=== PATIENT | male | born 1950 | race Caucasian/White ===

== ENCOUNTER 2016-10-29 15:06 | Inpatient (IN) | payer OTHER ==
[~2016-10-29] VITALS: Ht 165.1 cm; Wt 98.0 kg
[2016-11-08] VITALS (12 sets, daily range): BP systolic 103–155; BP diastolic 54–88; PULSE 62–79; RESP 16–18; TEMP 97.3–98.5; O2SAT 91–100
[2016-11-08] MEDS ORDERED: FUROSEMIDE 100 MG/10 ML VIAL IV PUSH ONE (05:00)
[2016-11-08] MEDS ORDERED: VECURONIUM BROMIDE 10 MG VIAL IV ONE (05:00)
[2016-11-08] MEDS ORDERED: ARTIFICIAL TEARS OPTH OINT 3.5 APPLIC/3.5 GM TUBO ONE (05:00)
[2016-11-08] MEDS ORDERED: NITROGLYCERIN-DEXTROSE INJ 250 ML IV ONE (05:00)
[2016-11-08] MEDS ORDERED: PROPOFOL 1000 MG/100 ML INJ 100 ML IV ONE (05:00)
[2016-11-08] MEDS ORDERED: HEPARIN SODIUM - SQ 10,000 UNITS/ML VIAL SQ ONE (05:00)
[2016-11-08] MEDS ORDERED: PROTAMINE SULFATE 250 MG/25 ML VIAL IV ONE (05:00)
[2016-11-08] MEDS ORDERED: MAGNESIUM SULFATE 1000 MG/2 ML VIAL (PED) IV ONE (05:00)
[2016-11-08] MEDS ORDERED: CALCIUM CHLORIDE 10% SOLN 1 GRAM/10 ML SYR IV ONE (05:00)
[2016-11-08] MEDS ORDERED: PHENYLEPHRINE HCL 10 MG/ML VIAL IV ONE (05:00)
[2016-11-08] MEDS ORDERED: GLYCOPYRROLATE 0.2 MG/ML VIAL IV ONE (05:00)
[2016-11-08] MEDS ORDERED: ASPI81CH CHEW (09:43)
[2016-11-08] MEDS ORDERED: FLUO20CA12 PO (09:43)
[2016-11-08] MEDS ORDERED: LISI20TA PO (09:45)
[2016-11-08] MEDS ORDERED: ISOS20TA PO (09:46)
[2016-11-08] MEDS ORDERED: ISOS10TA3 PO (09:46)
[2016-11-08] MEDS ORDERED: METO25TA3 PO (09:48)
[2016-11-08] MEDS ORDERED: NITR0.4S SL (09:48)
[2016-11-08] MEDS ORDERED: OMEP20TA PO (09:49)
[2016-11-08] MEDS ORDERED: SIMV40TA PO (09:49)
[2016-11-08] MEDS ORDERED: POTASSIUM CHLORIDE 20 MEQ/10 ML VIAL ONE (10:01)
[2016-11-08] MEDS ORDERED: MANNITOL INJ 50 ML ONE (10:01)
[2016-11-08] MEDS ORDERED: CARDIOPLEGIC IRR 1,000 ML ONE (10:01)
[2016-11-08] MEDS ORDERED: HEPARIN SODIUM - IV 10,000 UNITS/10 ML VIAL ONE (10:02)
[2016-11-08] MEDS ORDERED: ALBUMIN HUMAN 25% 12.5 GM/50 ML BAGP IV ONE (10:02)
[2016-11-08] MEDS ORDERED: HEPARIN SODIUM - SQ 10,000 UNITS/ML VIAL ONE ×2 (10:02→10:06)
[2016-11-08] MEDS ORDERED: VANCOMYCIN HCL 1000 MG VIAL ONE (10:05)
[2016-11-08] MEDS ORDERED: methylPREDNISolone SOD SUCC 125 MG/2 ML VIAL ONE (10:06)
[2016-11-08] MEDS ORDERED: ceFAZolin 2 GM PREMIX 50 ML ONE (10:06)
[2016-11-08] MEDS ORDERED: SODIUM CHLORID 0.9% 500 ML IV PRN (10:15)
[2016-11-08] MEDS ORDERED: POVIDONE IODINE 5% (ANTISEPSIS KIT) 4 APPLICATIONS EACH NARE PRN (10:15)
[2016-11-08] MEDS ORDERED: LACTATED RINGER'S 1000 ML IV PRN (10:15)
[2016-11-08] MEDS ORDERED: METOPROLOL TARTRATE 25 MG TAB PO PRN (10:15)
[2016-11-08] MEDS ORDERED: CHLORHEXIDINE GLUCONATE 2 % 1 PACK (2 CLOTHS) TOPICAL PRN (10:15)
[2016-11-08] MEDS ORDERED: INSULIN HUMAN REGULAR 1,000 UNITS/10 ML VIAL SQ PRN (10:15)
[2016-11-08] MEDS ORDERED: SODIUM CHLORIDE 0.9% FLUSH 10 ML FLUSH IV FLUSH PRN ×3 (10:30→16:00)
[2016-11-08] MEDS ORDERED: CEFAZOLIN 500 MG in NS IRR BTL 500 ML IRRIGATION SCH (10:30)
[2016-11-08] MEDS ORDERED: METOPROLOL TARTRATE 25 MG TAB PO ONE (10:30)
[2016-11-08] MEDS ORDERED: CHLORHEXIDINE GLUCONATE 4% SOLN 120 ML BTL TOPICAL SCH (10:30)
[2016-11-08] MEDS ORDERED: PAPAVERINE 60 MG-NITROGLYCERIN 100 MCG-DILTIAZEM 100 MG in NS 100 ML IRRIGATION SCH ×4 (10:30)
[2016-11-08] MEDS ORDERED: ceFAZolin 2 GM PREMIX 50 ML IV SCH (10:30)
[2016-11-08] MEDS ORDERED: INSULIN REGULAR 100 UNITS in NS 100 ML IV SCH (10:30)
[2016-11-08 11:34] LABS: MRSA PCR NEGATIVE (NEGATIVE); STAPH AUREUS PCR NEGATIVE (NEGATIVE)
[2016-11-08] MEDS ORDERED: ceFAZolin INJ 1,000 MG VIAL IV ONE (12:35)
[2016-11-08] MEDS ORDERED: AMINOCAPROIC ACID INJ 250 MG/ML 20 ML VIAL IV ONE (12:53)
[2016-11-08] MEDS ORDERED: LACTATED RINGER'S 1000 ML INJ 2,000 ML IV ONE (12:54)
--- NOTE | 2016-11-08 12:54 | HHI.FF ---
Face to Face Verification Diagnosis: (1) Coronary artery disease (2) S/P CABG (coronary artery bypass graft) (3) Hyperlipemia (4) Hypertension Home Health Nursing Order: Signs/symptoms of disease process Wound care and dressing changes Nursing assessment with vital signs Instructions: Heart and Vascular Surgery patients *Special attention to sternal dressing Mandatory frequency Assess and evaluation, 4 days in a row The next week 3X week 2 times a week for 4 weeks 1 time a week for 5 weeks Schedule Heart and Vascular patients for full 60 day certification period Initial visit Review Open Heart Surgery Discharge Instructions (Sternal precautions, Activity, Elastic hose, Incision care, Driving, Incentive spirometry, Smoking, [place], Work and other) Need Betadine to paint incision Medication reconciliation Importance of follow up care/ check on appointments Make calendar record temperature daily When to call [facility] nurse, review instructions, phone list Incentive Spirometry, demonstration Visit 1- Begin discharge instruction for patient family and/ or caregiver using teach back method- Signs and symptoms of infection Disease characteristics Medicines and side effects Foods and nutrition/ appetite Infection control/ hand washing/ hygiene Visit 2- Continue teaching Discharge instructions- include additional information on smoking cessation , sternal dressing (sternal vac) Visit 3- Continue teaching- Cough and deep breathing, incision monitoring. Choose my plate Visit 4- Continue teaching- Discuss limitations Discuss how they are feeling Discuss progress toward goals Remaining visits- continue teaching and monitoring PREVENA Single Use Negative Wound Therapy System Caregiver Instruction Sheet 1. A Prevena dressing system was applied to the chest incision during surgery , to promote wound healing. It works via a suction device (negative pressure wound therapy) to remove low to moderate levels of exudate (drainage) and infectious materials. We recommend that the device stay in place for up to seven days, from day of surgery. 2. Day of Surgery___7/ Day of Removal ____/ 3. The dressing should only be removed by a health rn care transition. Please arrange removal of device to coincide with Home Health visit and or with Nursing staff at Rehab 4. If skin reddening or irritation of skin occurs, or excessive drainage, please notify the Cardiovascular Surgeons office at [phone]. 5. Light showering is permissible; however the pump should be disconnected and placed in safe location, where it will not get wet. The dressing should not be exposed to direct spray or submerged in water. No bath tub / shower only. Ensure the end of the tubing attached to the dressing is facing down so that water does not enter the top of the tube. 6. To remove Prevena dressing: press purple button to turn off device / remove the suction. Then disconnect the tubing from the pump. The fixation strips should be stretched away from the skin and the dressing lifted at one corner and peeled back until it has been fully removed. 7. After removal, it is ok to shower daily using liquid dial soap and clean wash cloth, rinse and pat dry, and leave incision open to air dry. For any concerns regarding Prevena dressing, and or wounds, please contact Yany Hernandez, patient navigator at [phone] or notify the Cardiovascular Surgeons office at [phone]. Incentive spirometry Q1 hr x 10, while awake, also use acapella device hourly whole awake Sternal Breast Bone Precautions: NO pushing or pulling, ( pt must use sternal pillow to support chest with all activities and with coughing ( takes up to 3 months breast bone to heal ) All females to wear sternal bra , launder as needed Daily incision care: ok to shower daily, no tub bath. Wash all incisions with liquid dial soap, clean wash cloth to each site, rinse and pat dry. Observe for any signs of infection, such as drainage which is dark yellow, magana, green or foul smelling. Immediately report to the surgeon any drainage from the chest incision, or legs, and for any abnormal drainage from the chest tube sites. Notify surgeon if any temp >101.5 degrees F. When specialty dressing removed/ or if you do not have one, continue to shower daily as above, then rinse and pat incision dry and paint with betadine daily x 5 days. Allow steri strips to fall off if you have any. Avoid lotions, creams, salves, oils, etc. for the first month Please see attached forms for additional instructions regarding post Open Heart specialty wound vacuum dressings. ABE or Prevena , Dressing to be removed by Nursing staff on ___11/15/16____ For Dr. Harris patients , please obtain CBC, BMP, PA & Lat CXR in 2 weeks, results to Dr. Harris ( prescription will be given) ( ) (Tele: [phone]) , Valve replacement pts will need 2decho in 2 weeks with results to Dr. Harris . Please obtain 2 d echo at your installment loan collector office if possible F/U appointment: as per DC instructions: PCP in 2 weeks, CV surgeon 2 weeks, Ore Mixer 3-4 weeks For any questions regarding incisions/ dressing / meds / post op care or above Symptoms, Friday 8am-5pm Heart & Vascular Surgery Office ( Dr. Timmons & Dr. Harris), After Hours / Nights (5pm -8am) Weekends and Holidays Please call [facility] Cardiac Inter[facility] ([facility]) Charge Nurse I have seen patient Dimas Petty on 11/08/16. My clinical findings support the need for the requested home health care services because: Deconditioned w/ increased weakness I certify that my clinical findings support that this patient is homebound because: Post-op weakness Ena Simmons Nov 08, 2016 12:54
[2016-11-08] MEDS ORDERED: SODIUM CHLORIDE 0.9% INJ 100 ML IV ONE (12:55)
[2016-11-08] MEDS ORDERED: SODIUM CHLOR 0.9% 250 ML INJ 500 ML IV ONE (12:55)
[2016-11-08] MEDS ORDERED: NORMOSOL R INJ 1,000 ML IV ONE (12:57)
[2016-11-08] MEDS ORDERED: DEXMEDETOMIDINE HCL 200 MCG/2 ML VIAL ONE (14:34)
[2016-11-08] MEDS ORDERED: CLEVIDIPINE INJ 50 ML ONE (15:58)
[2016-11-08] MEDS ORDERED: hydrALAZINE HCL 20 MG/ML VIAL IV PRN (16:00)
[2016-11-08] MEDS ORDERED: ONDANSETRON HCL 4 MG/2 ML VIAL IV PUSH PRN (16:00)
[2016-11-08] MEDS ORDERED: LACTATED RINGER'S 1000 ML INJ 500 ML IV PRN (16:00)
[2016-11-08] MEDS ORDERED: DEXTROSE 50% IN WATER 50 ML VIAL(D50) IV PUSH PRN ×2 (16:00→18:30)
[2016-11-08] MEDS ORDERED: ACETAMINOPHEN 325 MG TAB PO PRN (16:00)
[2016-11-08] MEDS ORDERED: CLEVIDIPINE INJ 50 ML IV SCH (16:00)
[2016-11-08] MEDS ORDERED: ACETAMINOPHEN 650 MG SUPP RECTAL PRN (16:00)
[2016-11-08] MEDS ORDERED: RESP: ALBUTEROL 2.5 MG/IPRATROPIUM 0.5 MG NEB (PRN) NEB (16:00)
[2016-11-08] MEDS ORDERED: POTASSIUM CHLORIDE 20 MEQ CONTROLLED RELEASE TAB PO PRN ×2 (16:00)
[2016-11-08] MEDS ORDERED: CALCIUM CHLORIDE INJ 1 GM in SODIUM CHLORIDE 0.9% INJ 100 ML IV PRN (16:00)
[2016-11-08] MEDS ORDERED: ALBUMIN HUMAN 5% 12.5 GM/250 ML BOTTLE IV PRN (16:00)
[2016-11-08] MEDS ORDERED: POTASSIUM CHLOR 20 MEQ PREMIX 100 ML IV PRN ×2 (16:00)
[2016-11-08] MEDS ORDERED: CALCIUM CHLORIDE 10% 1 GRAM/10 ML VIAL IV PRN (16:00)
[2016-11-08] MEDS ORDERED: Post-op Orders (for Pharmacy) MISC OTHER ONE (16:00)
[2016-11-08] MEDS ORDERED: MAGNESIUM SULFATE INJ 2 GM in SODIUM CHLORIDE 0.9% INJ 100 ML IV PRN ×4 (16:00)
--- NOTE | 2016-11-08 16:04 | PD.OP ---
cc: Gordon Sneed MD; Shantell Harris MD Operative Report Date of Surgery: Nov 08, 2016 Preoperative Diagnosis: (1) Coronary artery disease (2) Angina decubitus Postoperative Diagnosis: same Procedure: CABG x 3 RADFORD to LAD - good SVG to OM1 - good SVG to PDA - good EVH Anesthesia: Dr. Santiago Surgeon: Shantell Harris Workers' Compensation Mediator(s): VENKAT Sandoval Operation and Findings: The risks, benefits, complications, treatment options, and expected outcomes were discussed with the patient. The possibilities of reaction to medication, pulmonary aspiration, perforation of viscus, bleeding, recurrent infection, the need for additional procedures, failure to diagnose a condition, and creating a complication requiring transfusion or operation were discussed with the patient. The patient concurred with the proposed plan, giving informed consent. The site of surgery properly noted/marked. The patient was taken to Operating Room, identified as Dimas Petty and the procedure verified as CABG, EVH. A Time Out was held and the above information confirmed. Standard monitoring lines and Slater catheter were placed. General anesthesia was induced. The patient was prepped and draped in a sterile fashion. A median sternotomy was performed and electrocautery was used to obtain hemostasis. The left internal mammary artery was procured as a pedicle from the 7th rib to the 1st rib in the usual manner. Simultaneously left greater saphenous vein was procured from the left leg using a minimally invasive endoscopic technique. The vein was prepared for anastomosis and the leg wound was irrigated and closed in 2 layers. The pericardium was opened and a pericardial sling was created using interrupted 0 silk sutures. The patient was heparinized for cardiopulmonary bypass and the distal mammary pedicle was instrumented for anastomosis. The heart was instrumented for cardiopulmonary bypass in the usual manner. Antegrade blood cardioplegia was employed. The patient was placed on cardiopulmonary bypass. An aortic cross-clamp was applied and the heart was arrested using cold blood cardioplegia. Antegrade cardioplegia was administered after he each anastomosis. After adequate arrest, the distal right coronary circulation was investigated and the PDA was opened with a [place] blade and found to be a 1.5 millimeter good target. Saphenous vein was approximated to the PDA artery using a running 7 0 Prolene suture. The graft was measured for length and orientation and the proximal anastomosis was constructed to the ascending aorta using a running 5 0 Prolene suture after creating an aortotomy with a 5 millimeter punch. The 1st circumflex marginal artery was then opened with a [place] blade and found to be a 1.5 millimeter good target. The OM1 artery was intramyocardial. Saphenous vein was approximated to the OM1 artery using a running 7 0 Prolene suture. The graft was measured for length and orientation and was suspended from the pericardium. The distal LAD was opened with a [place] blade and found to be a 1.5 millimeter good target. The left internal mammary artery was approximated to the LAD using a running 7 0 Prolene suture. The pedicle was attached to the epicardium using interrupted 5 0 silk suture. The patient was systemically rewarmed and received a hotshot dose of warm blood cardioplegia. The aorta was vented and the proximal anastomosis to the OM1 graft was accomplished using a running 5 0 Prolene suture after creating an aortotomy was a 5 millimeter punch. The cross-clamp was removed and all proximal and distal anastomoses were examined for hemostasis. The patient was weaned from cardiopulmonary bypass. Protamine was given. There was no adverse reaction. Decannulation was carried out without incident. Wound was checked for hemostasis which was obtained using electrocautery. A 36 [place] mediastinal and 32 [place] left pleural chest was were placed and secured to the skin with 0 silk suture. The sternum was closed with stainless steel wire. The fascia was closed with 1. PDS. The subcutaneous tissue was closed using a running 2-0 Vicryl suture. The skin was closed with 4-0 Monocryl. Sterile dressings were placed. At the end of the operation, all sponge, instruments, and needle counts were correct. The patient was transferred to the CICU in stable condition. Findings: good distal targets XC: 49 min CPB: 54 min Drains: mediastinal x 1 pleural x 1 Complications: none Disposition: to CVICU in stable condition Shantell Harris MD Nov 08, 2016 16:04
[2016-11-08] MEDS ORDERED: MIDAZOLAM HCL 5 MG/5 ML VIAL ONE (16:14)
[2016-11-08] MEDS ORDERED: fentaNYL CITRATE 1000 MCG/20 ML VIAL ONE (16:15)
--- NOTE | 2016-11-08 16:35 | RADRPT ---
EXAM DATE/TIME: 11/08/2016 16:02 [facility] COMPARISON: No previous studies available for comparison. INDICATIONS : S/p cabg. MEDICAL HISTORY : None. SURGICAL HISTORY : None. ENCOUNTER: Initial ACUITY: 1 day PAIN SCORE: Non-responsive. LOCATION: Bilateral chest FINDINGS: A single view of the chest is obtained. Status post CABG. Left-sided chest tube without pneumothorax. Left basilar density. Endotracheal tube with tip at the thoracic inlet approximately 7 cm above the vale. Left subclavian central line with tip in the SVC. Nasogastric tube with tip in stomach. Osse ous structures are intact. CONCLUSION: 1. Status post CABG. 2. Endotracheal tube with tip at thoracic inlet, this could be advanced 2 cm. Bg Saini MD on November 08, 2016 at 16:32 Board Certified Radiologist. This report was verified electronically.
[2016-11-08] MEDS ORDERED: INSULIN REGULAR (IV INFUSION) 100 UNITS in SODIUM CHLORIDE 0.9% INJ 99 ML IV SCH (17:00)
[2016-11-08] MEDS ORDERED: RESP: RACEPINEPHRINE 2.25% 0.5 ML NEB NEB PRN (17:00)
[2016-11-08] MEDS: ACETAMINOPHEN 1000 MG/100 ML VIAL IV SCH ×2 (17:39→23:00)
[2016-11-08] MEDS: POTASSIUM CHLOR 20 MEQ PREMIX 100 ML IV PRN ×2 (17:40→18:12)
[2016-11-08] MEDS ORDERED: INSULIN REGULAR 100 UNITS/100 ML NS ALGORITHM 1 IV SCH ×2 (18:30)
[2016-11-08] MEDS: MUPIROCIN 2% OINT 22 GM TUBE EACH NARE SCH (21:00)
[2016-11-08] MEDS ORDERED: NON-FORMULARY DRUG (Simvastatin 40 MG) PO SCH (21:00)
[2016-11-08] MEDS: PRAVASTATIN SOD 80 MG TAB PO SCH (21:21)
[2016-11-08] MEDS: SODIUM CHLORIDE 0.9% FLUSH 10 ML FLUSH IV FLUSH SCH (21:23)
[2016-11-08] MEDS: oxyCODONE/ACETAMINOPHEN 5 MG/325 MG TAB PO PRN (21:23)
[2016-11-09] VITALS (16 sets, daily range): BP systolic 116–156; BP diastolic 56–95; PULSE 74–86; RESP 16–22; TEMP 98.1–99.1; O2SAT 93–96
[2016-11-09] MEDS: oxyCODONE/ACETAMINOPHEN 5 MG/325 MG TAB PO PRN ×4 (02:12→19:25)
[2016-11-09] MEDS: ACETAMINOPHEN 1000 MG/100 ML VIAL IV SCH ×2 (05:00→11:13)
[2016-11-09] MEDS: PANTOPRAZOLE SOD 40 MG DELAYED RELEASE TAB PO SCH (05:00)
[2016-11-09] MEDS: METOPROLOL TARTRATE 5 MG/5 ML VIAL IV PUSH PRN ×2 (05:02→06:15)
[2016-11-09 05:03] LABS: HEMATOCRIT 35.5 % (39.0-51.0); MEAN CELL VOLUME 90.3 FL (80.0-100.0); MEAN CORPUSCULAR HGB CONC 35.5 % (32.0-36.0); PLATELET COUNT 190 TH/MM3 (150-450); RED BLOOD COUNT 3.93 MIL/MM3 (4.50-5.90); RED CELL DISTRIBUTION WIDTH 12.8 % (11.6-17.2); REVIEW FLAG FINAL; WHITE BLOOD COUNT 16.3 TH/MM3 (4.0-11.0)
[2016-11-09 05:18] LABS: BICARBONATE 25.9 MEQ/L (21.0-32.0); MAGNESIUM 2.3 MG/DL (1.5-2.5)
--- NOTE | 2016-11-09 06:17 | RADRPT ---
EXAM DATE/TIME: 11/09/2016 04:12 [facility] COMPARISON: CHEST SINGLE AP, November 08, 2016, 16:02. INDICATIONS : Post CABG, chest pain, right side chest tube MEDICAL HISTORY : None. SURGICAL HISTORY : CABG. ENCOUNTER: Subsequent ACUITY: 2 days PAIN SCORE: 8/10 LOCATION: Bilateral chest FINDINGS: There has been interval extubation and removal of nasogastric tube. Left and midline chest tubes are noted. Left subclavian central line is stable. There is minimal atelectasis in the left lung base. Ca rdiac contour is grossly stable. CONCLUSION: Interval extubation. Otherwise stable chest appearance Celestino Hunt MD on November 09, 2016 at 6:14 Board Certified Radiologist. This report was verified electronically.
[2016-11-09] MEDS ORDERED: BISACODYL 10 MG SUPP RECTAL PRN (08:30)
[2016-11-09] MEDS ORDERED: GLUCAGON 1 MG/ML VIAL OTHER PRN (08:30)
[2016-11-09] MEDS ORDERED: SOD PHOSPHATE/SOD BIPHOSPHATE (ADULT) ENEMA 133ML RECTAL PRN (08:30)
[2016-11-09] MEDS ORDERED: DEXTROSE 50% IN WATER 50 ML VIAL(D50) IV PRN (08:30)
--- NOTE | 2016-11-09 08:33 | PD.CAR.PN ---
CVT Progress Note CVT: POD #: 1 Subjective/Hospital Course: Doing well Objective: Vital Signs Date Time Temp Pulse Resp B/P Pulse Ox O2 Delivery O2 Flow Rate FiO2 11/09/16 03:00 94 Nasal Cannula 3.00 11/09/16 03:00 98.4 84 16 134/78 94 155/69 11/09/16 03:00 79 11/08/16 23:00 97.8 79 18 123/76 95 133/64 11/08/16 23:00 95 Nasal Cannula 4.00 11/08/16 23:00 73 11/08/16 19:29 18 11/08/16 19:00 69 11/08/16 19:00 91 Nasal Cannula 4.00 11/08/16 19:00 97.3 68 18 103/66 91 114/54 11/08/16 18:20 97 Nasal Cannula 4 11/08/16 18:20 95 Nasal Cannula 4.00 11/08/16 18:00 98.5 11/08/16 17:35 97 50 11/08/16 17:25 98 60 11/08/16 17:10 97 70 11/08/16 16:40 98 80 11/08/16 16:20 97 Nasal Cannula 4.00 11/08/16 16:10 98 95 11/08/16 16:00 98 Mechanical Ventilator 95 11/08/16 16:00 95 11/08/16 16:00 62 11/08/16 16:00 98.5 11/08/16 09:51 98.2 62 16 155/88 100 Labs: Laboratory Tests Test 11/09/16 04:20 White Blood Count 16.3 TH/MM3 (4.0-11.0) Red Blood Count 3.93 MIL/MM3 (4.50-5.90) Hemoglobin 12.6 GM/DL (13.0-17.0) Hematocrit 35.5 % (39.0-51.0) Mean Corpuscular Volume 90.3 FL (80.0-100.0) Mean Corpuscular Hemoglobin 32.0 PG (27.0-34.0) Mean Corpuscular Hemoglobin 35.5 % Concent (32.0-36.0) Red Cell Distribution Width 12.8 % (11.6-17.2) Platelet Count 190 TH/MM3 (150-450) Mean Platelet Volume 7.6 FL (7.0-11.0) Sodium Level 139 MEQ/L (136-145) Potassium Level 4.0 MEQ/L (3.5-5.1) Chloride Level 106 MEQ/L (98-107) Carbon Dioxide Level 25.9 MEQ/L (21.0-32.0) Anion Gap 7 MEQ/L (5-15) Blood Urea Nitrogen 9 MG/DL (7-18) Creatinine 0.59 MG/DL (0.60-1.30) Estimat Glomerular Filtration 137 ML/MIN Rate (>89) Random Glucose 99 MG/DL (74-106) Calcium Level 8.4 MG/DL (8.5-10.1) Magnesium Level 2.3 MG/DL (1.5-2.5) Result Diagram: 11/09/1641911/09/16419 Imaging: Last 24 hours Impressions Chest X-Ray 11/09/16 0500 Signed Impressions: Service Date/Time: Wednesday, November 09, 2016 04:12 - CONCLUSION: Interval extubation. Otherwise stable chest appearance Celestino Hunt MD Cardiovascular: RRR Pulmonary: CTA GI/: NABS Incision: dry and intact CT: 180ml/12hrs Plan: Transfer to stepdown Encourage ambulation BB, statin, ASA Diurese continue chest tubes Shantell Harris MD Nov 09, 2016 08:33
[2016-11-09] MEDS: FLUoxetine HCL 20 MG CAP PO SCH (08:50)
[2016-11-09] MEDS: ASPIRIN 81 MG CHEW TAB PO SCH (08:50)
[2016-11-09] MEDS: MUPIROCIN 2% OINT 22 GM TUBE EACH NARE SCH ×2 (08:54→21:00)
[2016-11-09] MEDS ORDERED: METOPROLOL TARTRATE 25 MG TAB PO SCH (09:00)
[2016-11-09] MEDS: SODIUM CHLORIDE 0.9% FLUSH 10 ML FLUSH IV FLUSH SCH ×2 (09:04→22:50)
[2016-11-09] MEDS: FUROSEMIDE 40 MG/4 ML VIAL IV PUSH SCH (09:04)
[2016-11-09] MEDS: MAGNESIUM HYDROXIDE SUSP 30 ML CUP PO SCH (09:04)
[2016-11-09] MEDS: MULTIVITAMINS/MINERALS THERAPEUTIC TAB PO SCH (09:05)
[2016-11-09] MEDS: INSULIN ASPART SUPPLEMENTAL SCALE SQ SCH ×5 (10:00→22:00)
[2016-11-09] MEDS: METOCLOPRAMIDE HCL 10 MG/2 ML VIAL IV SCH ×2 (11:13→18:24)
[2016-11-09] MEDS: DOCUSATE SODIUM 100 MG CAP PO SCH (20:15)
[2016-11-09] MEDS: PRAVASTATIN SOD 80 MG TAB PO SCH (20:15)
[2016-11-09] MEDS: SENNOSIDES 8.6 MG TAB PO SCH (20:15)
[2016-11-10] VITALS (29 sets, daily range): BP systolic 123–147; BP diastolic 76–95; PULSE 73–150; RESP 14–22; TEMP 98–99; O2SAT 91–94
[2016-11-10] MEDS: oxyCODONE/ACETAMINOPHEN 5 MG/325 MG TAB PO PRN ×5 (00:43→18:27)
[2016-11-10] MEDS: INSULIN ASPART SUPPLEMENTAL SCALE SQ SCH ×5 (02:00→20:41)
[2016-11-10] MEDS: PANTOPRAZOLE SOD 40 MG DELAYED RELEASE TAB PO SCH (05:21)
[2016-11-10 05:59] LABS: AUTOMATED NEUTROPHIL # 10.9 TH/MM3 (1.8-7.7); BASOPHIL % 0.1 % (0.0-2.0); HEMATOCRIT 33.8 % (39.0-51.0); HEMO FLAGS DIFF FINAL; LYMPH % 17.4 % (9.0-44.0); LYMPHOCYTE # 2.6 TH/MM3 (1.0-4.8); MEAN CELL VOLUME 92.2 FL (80.0-100.0); MEAN CORPUSCULAR HEMOGLOBIN 31.6 PG (27.0-34.0); MEAN CORPUSCULAR HGB CONC 34.3 % (32.0-36.0); MONO % 9.8 % (0.0-8.0); NEUT % 72.7 % (16.0-70.0); PLATELET COUNT 189 TH/MM3 (150-450); RED BLOOD COUNT 3.67 MIL/MM3 (4.50-5.90); RED CELL DISTRIBUTION WIDTH 12.8 % (11.6-17.2)
[2016-11-10] MEDS: METOCLOPRAMIDE HCL 10 MG/2 ML VIAL IV SCH ×5 (06:23→23:04)
[2016-11-10 06:26] LABS: BICARBONATE 29.3 MEQ/L (21.0-32.0); MAGNESIUM 2.2 MG/DL (1.5-2.5)
[2016-11-10] MEDS: DOCUSATE SODIUM 100 MG CAP PO SCH ×2 (08:41→20:41)
[2016-11-10] MEDS: MULTIVITAMINS/MINERALS THERAPEUTIC TAB PO SCH (08:41)
[2016-11-10] MEDS: FLUoxetine HCL 20 MG CAP PO SCH (08:41)
[2016-11-10] MEDS: ASPIRIN 81 MG CHEW TAB PO SCH (08:41)
[2016-11-10] MEDS: POLYETHYLENE GLYCOL 17 GM PKG PO SCH (08:42)
[2016-11-10] MEDS: FUROSEMIDE 40 MG/4 ML VIAL IV PUSH SCH (08:42)
[2016-11-10] MEDS: SODIUM CHLORIDE 0.9% FLUSH 10 ML FLUSH IV FLUSH SCH ×2 (08:42→20:40)
[2016-11-10] MEDS: MAGNESIUM HYDROXIDE SUSP 30 ML CUP PO SCH (08:42)
[2016-11-10] MEDS: MUPIROCIN 2% OINT 22 GM TUBE EACH NARE SCH ×2 (08:43→20:40)
[2016-11-10] MEDS ORDERED: METOPROLOL TARTRATE 25 MG TAB PO SCH ×3 (09:00→21:00)
[2016-11-10] MEDS ORDERED: PILL SPLITTER OTHER PRN (09:00)
--- NOTE | 2016-11-10 11:18 | PD.CAR.PN ---
CVT Progress Note CVT: POD #: 2 Subjective/Hospital Course: Doing well 11/10/16 No complaints, doing well Objective: Vital Signs Date Time Temp Pulse Resp B/P Pulse Ox O2 Delivery O2 Flow Rate FiO2 11/10/16 10:03 85 11/10/16 09:11 85 11/10/16 08:06 91 Nasal Cannula 1.00 11/10/16 08:05 89 11/10/16 08:02 98.7 89 18 134/83 91 11/10/16 07:05 96 11/10/16 06:53 94 Nasal Cannula 2.00 11/10/16 06:15 91 11/10/16 05:32 91 11/10/16 05:14 98.9 87 14 135/79 94 11/10/16 05:10 95 Nasal Cannula 2.00 11/10/16 05:00 82 11/10/16 04:00 88 11/10/16 03:00 82 11/10/16 02:10 83 11/10/16 01:38 14 11/10/16 01:35 81 11/10/16 00:27 98.0 82 14 123/77 94 11/09/16 23:50 95 Nasal Cannula 2.00 11/09/16 23:45 14 11/09/16 23:25 79 11/09/16 22:00 86 11/09/16 21:24 Nasal Cannula 2.00 11/09/16 21:00 82 11/09/16 20:00 86 11/09/16 19:40 98.3 84 16 154/87 96 11/09/16 19:15 96 Nasal Cannula 2.00 11/09/16 19:00 85 11/09/16 18:05 74 22 156/95 93 11/09/16 18:03 78 11/09/16 16:00 98.1 82 18 128/78 94 11/09/16 16:00 96 Nasal Cannula 2.00 11/09/16 15:00 77 11/09/16 12:00 98.6 82 18 116/60 94 Arterial Line 11/09/16 11:38 96 Nasal Cannula 3.00 Labs: Laboratory Tests Test 11/10/16 05:00 White Blood Count 15.0 TH/MM3 (4.0-11.0) Red Blood Count 3.67 MIL/MM3 (4.50-5.90) Hemoglobin 11.6 GM/DL (13.0-17.0) Hematocrit 33.8 % (39.0-51.0) Mean Corpuscular Volume 92.2 FL (80.0-100.0) Mean Corpuscular Hemoglobin 31.6 PG (27.0-34.0) Mean Corpuscular Hemoglobin 34.3 % Concent (32.0-36.0) Red Cell Distribution Width 12.8 % (11.6-17.2) Platelet Count 189 TH/MM3 (150-450) Mean Platelet Volume 7.4 FL (7.0-11.0) Neutrophils (%) (Auto) 72.7 % (16.0-70.0) Lymphocytes (%) (Auto) 17.4 % (9.0-44.0) Monocytes (%) (Auto) 9.8 % (0.0-8.0) Eosinophils (%) (Auto) 0.0 % (0.0-4.0) Basophils (%) (Auto) 0.1 % (0.0-2.0) Neutrophils # (Auto) 10.9 TH/MM3 (1.8-7.7) Lymphocytes # (Auto) 2.6 TH/MM3 (1.0-4.8) Monocytes # (Auto) 1.5 TH/MM3 (0-0.9) Eosinophils # (Auto) 0.0 TH/MM3 (0-0.4) Basophils # (Auto) 0.0 TH/MM3 (0-0.2) CBC Comment DIFF FINAL Differential Comment Sodium Level 135 MEQ/L (136-145) Potassium Level 4.0 MEQ/L (3.5-5.1) Chloride Level 99 MEQ/L (98-107) Carbon Dioxide Level 29.3 MEQ/L (21.0-32.0) Anion Gap 7 MEQ/L (5-15) Blood Urea Nitrogen 11 MG/DL (7-18) Creatinine 0.56 MG/DL (0.60-1.30) Estimat Glomerular Filtration 145 ML/MIN Rate (>89) Random Glucose 109 MG/DL (74-106) Calcium Level 7.9 MG/DL (8.5-10.1) Magnesium Level 2.2 MG/DL (1.5-2.5) Result Diagram: 11/10/16 0500 11/10/16 0500 Cardiovascular: RRR Telemetry: NSR Pulmonary: CTA GI/: NABS Incision: dry and intact CT: ~470/24hrs Plan: Cont. chest tubes Beta estevan Cont asa, statin Encourage ambulation, up to chair Shantell Jason MD Nov 10, 2016 11:18
--- NOTE | 2016-11-10 18:13 | EKG ---
Date Performed: 11/09/2016 Time Performed: 04:31:06 PTAGE: 66 years EKG: Sinus rhythm with PVC(s) Inferior and anterior T wave changes are nonspecific Borderline ECG NO PREVIOUS TRACING DOCTOR: Alli Mcfarland Interpretating Date/Time 11/10/2016 18:11:12
[2016-11-10] MEDS ORDERED: AMIODARONE 150 MG/D5W 97 ML BOLUS 60 MINUTES IV ONE ×2 (20:15)
[2016-11-10] MEDS: METOPROLOL TARTRATE 25 MG TAB PO SCH (20:39)
[2016-11-10] MEDS: MAGNESIUM SULFAT 1 GM PREMIX 100 ML x2 bags IV SCH ×2 (20:40→23:04)
[2016-11-10] MEDS: PRAVASTATIN SOD 80 MG TAB PO SCH (20:40)
[2016-11-10] MEDS: SENNOSIDES 8.6 MG TAB PO SCH (20:41)
[2016-11-11] VITALS (30 sets, daily range): BP systolic 107–154; BP diastolic 69–89; PULSE 68–96; RESP 16–20; TEMP 98.2–98.9; O2SAT 92–97
[2016-11-11] MEDS: oxyCODONE/ACETAMINOPHEN 5 MG/325 MG TAB PO PRN ×4 (03:00→22:18)
[2016-11-11] MEDS: METOCLOPRAMIDE HCL 10 MG/2 ML VIAL IV SCH ×3 (05:27→18:19)
[2016-11-11] MEDS: PANTOPRAZOLE SOD 40 MG DELAYED RELEASE TAB PO SCH (05:27)
[2016-11-11] MEDS: INSULIN ASPART SUPPLEMENTAL SCALE SQ SCH ×4 (06:35→22:12)
[2016-11-11 06:58] LABS: HEMATOCRIT 32.1 % (39.0-51.0); MEAN CORPUSCULAR HEMOGLOBIN 32.1 PG (27.0-34.0); MEAN CORPUSCULAR HGB CONC 34.9 % (32.0-36.0); PLATELET COUNT 178 TH/MM3 (150-450); RED BLOOD COUNT 3.49 MIL/MM3 (4.50-5.90); RED CELL DISTRIBUTION WIDTH 12.5 % (11.6-17.2); REVIEW FLAG FINAL; WHITE BLOOD COUNT 12.3 TH/MM3 (4.0-11.0)
[2016-11-11 07:45] LABS: BICARBONATE 28.4 MEQ/L (21.0-32.0); MAGNESIUM 2.5 MG/DL (1.5-2.5); POTASSIUM 3.7 MEQ/L (3.5-5.1)
[2016-11-11] MEDS: FUROSEMIDE 40 MG/4 ML VIAL IV PUSH SCH (08:42)
[2016-11-11] MEDS: FLUoxetine HCL 20 MG CAP PO SCH (08:43)
[2016-11-11] MEDS: DOCUSATE SODIUM 100 MG CAP PO SCH ×2 (08:43→21:53)
[2016-11-11] MEDS: ASPIRIN 81 MG CHEW TAB PO SCH (08:43)
[2016-11-11] MEDS: METOPROLOL TARTRATE 25 MG TAB PO SCH ×2 (08:44→21:53)
[2016-11-11] MEDS: MULTIVITAMINS/MINERALS THERAPEUTIC TAB PO SCH (08:44)
--- NOTE | 2016-11-11 13:08 | PD.CAR.PN ---
CVT Progress Note CVT: POD #: 3 Subjective/Hospital Course: Doing well 11/10/16 No complaints, doing well 11/11/16 doing well, episode of SVT last night, resolved now. Objective: Vital Signs Date Time Temp Pulse Resp B/P Pulse Ox O2 Delivery O2 Flow Rate FiO2 11/11/16 07:49 93 Nasal Cannula 2.00 11/11/16 07:40 87 11/11/16 07:40 98.3 87 18 154/89 96 11/11/16 07:40 96 Nasal Cannula 2.00 11/11/16 06:38 76 11/11/16 05:03 74 11/11/16 04:32 82 11/11/16 04:12 80 11/11/16 03:14 Nasal Cannula 2.00 95 11/11/16 03:14 98.2 78 138/78 92 11/11/16 02:00 78 11/11/16 01:03 98.9 80 141/89 95 11/11/16 01:03 Nasal Cannula 2.00 95 11/11/16 01:00 76 11/11/16 00:00 70 11/10/16 23:00 73 11/10/16 22:00 78 11/10/16 21:00 144 11/10/16 20:00 150 11/10/16 19:00 102 11/10/16 19:00 98.7 83 147/95 94 11/10/16 19:00 Nasal Cannula 2.00 95 11/10/16 18:36 92 Nasal Cannula 2.00 11/10/16 18:01 96 11/10/16 17:00 90 11/10/16 16:00 95 11/10/16 15:00 91 Nasal Cannula 2.00 11/10/16 15:00 98.7 97 22 145/76 91 11/10/16 15:00 95 11/10/16 14:00 97 11/10/16 13:11 90 Labs: Laboratory Tests Test 11/11/16 06:00 White Blood Count 12.3 TH/MM3 (4.0-11.0) Red Blood Count 3.49 MIL/MM3 (4.50-5.90) Hemoglobin 11.2 GM/DL (13.0-17.0) Hematocrit 32.1 % (39.0-51.0) Mean Corpuscular Volume 92.0 FL (80.0-100.0) Mean Corpuscular Hemoglobin 32.1 PG (27.0-34.0) Mean Corpuscular Hemoglobin 34.9 % Concent (32.0-36.0) Red Cell Distribution Width 12.5 % (11.6-17.2) Platelet Count 178 TH/MM3 (150-450) Mean Platelet Volume 7.4 FL (7.0-11.0) Sodium Level 136 MEQ/L (136-145) Potassium Level 3.7 MEQ/L (3.5-5.1) Chloride Level 100 MEQ/L (98-107) Carbon Dioxide Level 28.4 MEQ/L (21.0-32.0) Anion Gap 8 MEQ/L (5-15) Blood Urea Nitrogen 8 MG/DL (7-18) Creatinine 0.55 MG/DL (0.60-1.30) Estimat Glomerular Filtration 148 ML/MIN Rate (>89) Random Glucose 98 MG/DL (74-106) Calcium Level 8.1 MG/DL (8.5-10.1) Magnesium Level 2.5 MG/DL (1.5-2.5) Result Diagram: 11/11/16 0600 11/11/16 0600 Cardiovascular: RRR Telemetry: NSR Pulmonary: CTA GI/: NABS, NT Incision: dry and intact CT: 150ml over past ~6 hrs Plan: Cont chest tubes one more day Amiodarone for prophylaxis Restart ACEI Encourage ambulation Anticipate D/C in AM. Shantell Harris MD Nov 11, 2016 13:08
[2016-11-11] MEDS ORDERED: NON-FORMULARY DRUG (Lisinopril-Hctz 2 TAB) PO SCH (13:15)
[2016-11-11] MEDS: AMIODARONE 200 MG TAB PO SCH ×2 (16:38→21:53)
[2016-11-11] MEDS: MUPIROCIN 2% OINT 22 GM TUBE EACH NARE SCH (21:00)
[2016-11-11] MEDS: SODIUM CHLORIDE 0.9% FLUSH 10 ML FLUSH IV FLUSH SCH (21:00)
[2016-11-11] MEDS: SENNOSIDES 8.6 MG TAB PO SCH (21:53)
[2016-11-11] MEDS: PRAVASTATIN SOD 80 MG TAB PO SCH (21:54)
[2016-11-12] VITALS (27 sets, daily range): BP systolic 112–150; BP diastolic 60–82; PULSE 68–103; RESP 18–22; TEMP 98.4–99.3; O2SAT 92–95
[2016-11-12] MEDS: METOCLOPRAMIDE HCL 10 MG/2 ML VIAL IV SCH ×5 (06:00→23:41)
[2016-11-12] MEDS: PANTOPRAZOLE SOD 40 MG DELAYED RELEASE TAB PO SCH (06:18)
[2016-11-12] MEDS: INSULIN ASPART SUPPLEMENTAL SCALE SQ SCH ×4 (06:28→21:00)
[2016-11-12] MEDS: HYDROCHLOROTHIAZIDE 25 MG TAB PO SCH (09:17)
[2016-11-12] MEDS: FLUoxetine HCL 20 MG CAP PO SCH (09:18)
[2016-11-12] MEDS: ASPIRIN 81 MG CHEW TAB PO SCH (09:18)
[2016-11-12] MEDS: LISINOPRIL 20 MG TAB PO SCH (09:18)
[2016-11-12] MEDS: DOCUSATE SODIUM 100 MG CAP PO SCH ×2 (09:18→21:00)
[2016-11-12] MEDS: SODIUM CHLORIDE 0.9% FLUSH 10 ML FLUSH IV FLUSH SCH ×2 (09:18→21:28)
[2016-11-12] MEDS: AMIODARONE 200 MG TAB PO SCH ×2 (09:18→21:41)
[2016-11-12] MEDS: MUPIROCIN 2% OINT 22 GM TUBE EACH NARE SCH (09:19)
[2016-11-12] MEDS: POLYETHYLENE GLYCOL 17 GM PKG PO SCH (09:19)
[2016-11-12] MEDS: MAGNESIUM HYDROXIDE SUSP 30 ML CUP PO SCH (09:19)
[2016-11-12] MEDS: FUROSEMIDE 40 MG/4 ML VIAL IV PUSH SCH (09:19)
[2016-11-12] MEDS: METOPROLOL TARTRATE 25 MG TAB PO SCH ×2 (09:19→21:24)
[2016-11-12] MEDS: MULTIVITAMINS/MINERALS THERAPEUTIC TAB PO SCH (09:19)
--- NOTE | 2016-11-12 15:22 | PD.CAR.PN ---
CVT Progress Note CVT: POD #: 4 Subjective/Hospital Course: Doing well 11/10/16 No complaints, doing well 11/11/16 doing well, episode of SVT last night, resolved now. 11/12/16 Doing well, no complaints Objective: Vital Signs Date Time Temp Pulse Resp B/P Pulse Ox O2 Delivery O2 Flow Rate FiO2 11/12/16 14:00 78 11/12/16 13:13 78 11/12/16 12:00 75 11/12/16 11:00 95 Room Air 11/12/16 11:00 78 11/12/16 11:00 98.5 103 18 134/78 95 11/12/16 10:04 87 11/12/16 09:01 96 11/12/16 08:00 92 21 11/12/16 08:00 77 11/12/16 07:30 98.6 77 20 150/82 95 11/12/16 07:30 95 Room Air 11/12/16 07:00 75 11/12/16 06:00 76 11/12/16 05:00 76 11/12/16 04:00 68 11/12/16 03:36 95 Nasal Cannula 2.00 11/12/16 03:00 98.8 73 20 135/74 95 11/12/16 03:00 70 11/12/16 02:00 70 11/12/16 01:00 68 11/12/16 00:00 68 11/11/16 23:44 16 11/11/16 23:00 68 11/11/16 23:00 98.7 70 16 119/69 95 11/11/16 23:00 95 Nasal Cannula 2.00 11/11/16 22:00 86 11/11/16 21:00 80 11/11/16 20:00 86 11/11/16 20:00 95 Nasal Cannula 2.00 11/11/16 20:00 98.6 86 16 145/76 95 11/11/16 19:00 90 11/11/16 18:07 96 11/11/16 17:00 78 11/11/16 16:30 97 Nasal Cannula 2.00 11/11/16 16:00 92 11/11/16 15:45 93 Room Air 11/11/16 15:45 85 11/11/16 15:45 98.9 85 20 136/82 93 Result Diagram: 11/11/1659911/11/16599 Cardiovascular: RRR Telemetry: NSR Pulmonary: CTA GI/: NABS, NT Incision: dry and intact CT: 60ml/12 hrs Plan: D/C chest tubes Encourage ambulation D/C in AM Shantell Harris MD Nov 12, 2016 15:22
[2016-11-12] MEDS: oxyCODONE/ACETAMINOPHEN 5 MG/325 MG TAB PO PRN ×2 (15:56→21:25)
[2016-11-12] MEDS: SENNOSIDES 8.6 MG TAB PO SCH (21:00)
[2016-11-12] MEDS: PRAVASTATIN SOD 80 MG TAB PO SCH (21:26)
[2016-11-13] VITALS (17 sets, daily range): BP systolic 100–136; BP diastolic 66–79; PULSE 60–82; RESP 16–20; TEMP 98.5; O2SAT 93–96
[2016-11-13] MEDS: METOCLOPRAMIDE HCL 10 MG/2 ML VIAL IV SCH ×2 (06:00→11:51)
[2016-11-13] MEDS: PANTOPRAZOLE SOD 40 MG DELAYED RELEASE TAB PO SCH (06:00)
[2016-11-13] MEDS: INSULIN ASPART SUPPLEMENTAL SCALE SQ SCH ×2 (07:00→11:50)
[2016-11-13] MEDS: MULTIVITAMINS/MINERALS THERAPEUTIC TAB PO SCH (08:24)
[2016-11-13] MEDS: FUROSEMIDE 40 MG/4 ML VIAL IV PUSH SCH (08:24)
[2016-11-13] MEDS: HYDROCHLOROTHIAZIDE 25 MG TAB PO SCH (08:24)
[2016-11-13] MEDS: LISINOPRIL 20 MG TAB PO SCH (08:24)
[2016-11-13] MEDS: FLUoxetine HCL 20 MG CAP PO SCH (08:24)
[2016-11-13] MEDS: METOPROLOL TARTRATE 25 MG TAB PO SCH (08:25)
[2016-11-13] MEDS: AMIODARONE 200 MG TAB PO SCH (08:25)
[2016-11-13] MEDS: MAGNESIUM HYDROXIDE SUSP 30 ML CUP PO SCH (08:25)
[2016-11-13] MEDS: DOCUSATE SODIUM 100 MG CAP PO SCH (08:25)
[2016-11-13] MEDS: SODIUM CHLORIDE 0.9% FLUSH 10 ML FLUSH IV FLUSH SCH (08:25)
[2016-11-13] MEDS: ASPIRIN 81 MG CHEW TAB PO SCH (08:25)
[2016-11-13] MEDS: POLYETHYLENE GLYCOL 17 GM PKG PO SCH (08:25)
[2016-11-13] MEDS ORDERED: AMIO200T PO (10:38)
[2016-11-13] MEDS ORDERED: THERM PO (10:39)
[2016-11-13] MEDS ORDERED: OXYC1TAB63 PO (10:39)
[2016-11-13] MEDS ORDERED: METO25TA3 PO (10:39)
--- NOTE | 2016-11-13 10:46 | HHI.DS ---
Discharge Summary Admission Date Nov 08, 2016 at 08:57 Discharge Date: Nov 13, 2016 Admitting Diagnosis Multivessel CAD, chest pain (1) Coronary artery disease Diagnosis: Principal (2) Angina decubitus Diagnosis: Principal (3) Hypertension Diagnosis: Secondary (4) Hyperlipemia Diagnosis: Secondary Procedures CABG x 3 Brief History 66y/o male presents with crescendo angina and dyspnea. He was found to have multivessel CAD on left heart catheterization. CBC/BMP: 11/11/16 0600 11/11/16 0600 Significant Findings Laboratory Tests Test 11/11/16 06:00 White Blood Count 12.3 TH/MM3 (4.0-11.0) Red Blood Count 3.49 MIL/MM3 (4.50-5.90) Hemoglobin 11.2 GM/DL (13.0-17.0) Hematocrit 32.1 % (39.0-51.0) Creatinine 0.55 MG/DL (0.60-1.30) Calcium Level 8.1 MG/DL (8.5-10.1) Imaging Last Impressions Chest X-Ray 11/09/16 0500 Signed Impressions: Service Date/Time: Friday, November 09, 2016 04:12 - CONCLUSION: Interval extubation. Otherwise stable chest appearance Celestino Hunt MD PE at Discharge chest - CTA COR - RRR ABD - soft, NT, NABS wound - dry and intact Hospital Course Patient underwent CABG x 3 on 11/08/16. He had a stable postoperative course and had his chest tubes removed on POD3. Pt Condition on Discharge: Good Discharge Disposition: Disch w/ Home Health Serv Discharge Instructions DIET: Follow Instructions for: Heart Healthy Diet Activities you can perform: Weight Bearing as Yancy, Shower Only-No Bath Activities to avoid: Lifting/Bending, Driving Follow up Referrals: Cardiology with Gordon Sneed MD PCP Follow-up with [facility] with Shantell Harris MD New Orders: BASIC METABOLIC PROF - 2 Weeks CBC NO DIFF - 2 Weeks X-RAY CHEST PA & LAT - 2 Weeks New Medications: Amiodarone (Amiodarone) 200 Mg Tab 200 MG PO Q12HR Regulate Heart Beat #28 Ref 0 TAB Metoprolol Tartrate (Metoprolol Tartrate) 25 Mg Tab 25 MG PO BID Blood Pressure Management #60 Ref 3 TAB Multiple Vitamins W/ Minerals (Thera M Plus) 1 Tab 1 TAB PO DAILY Nutritional Supplement #100 Ref 1 TAB Oxycodone-Acetaminophen (Oxycodone-Acetaminophen) 5-325 mg Tab 1 TAB PO Q3H PRN PAIN SCALE 1 TO 5 #30 Ref 0 TAB Continued Medications: Aspirin (Aspirin) 81 Mg Chew 81 MG CHEW DAILY Ref 0 TAB Fluoxetine (Fluoxetine) 20 Mg Capsule 20 MG PO DAILY #30 Ref 0 CAP Lisinopril-Hctz (Lisinopril-Hctz) 20-12.5 Mg Tab 2 TAB PO DAILY Blood Pressure Management #30 Ref 0 TAB Omeprazole (Omeprazole) 20 Mg Tab 20 MG PO DAILY #30 Ref 0 TAB Simvastatin (Simvastatin) 40 Mg Tab 40 MG PO HS Cholesterol Management #30 Ref 0 TAB Discontinued Medications: Metoprolol Tartrate (Metoprolol Tartrate) 25 Mg Tab 12.5 MG PO BID #60 Ref 0 TAB Shantell Harris MD Nov 13, 2016 10:46
--- NOTE | 2016-11-15 09:35 | RSPPFT ---
DATE OF PROCEDURE: 11/08/16 COMMENTS: Spirometry shows FVC of 3.0 predicted 3.6, FEV1 of 2.1 predicted 2.8, FEV1/FVC ratio 70% predicted 76%. IMPRESSION: On the basis of the above, patient has flow values within the predicted range.
== END 2016-11-13 12:45 | disposition home health service (06) | DRG 236 ==
LOC: HSDI 11-08 08:57 → HCVR 11-08 15:15 → HCIN 11-09 17:48
PROVIDERS: ADMIT Thoracic Surgery (Cardiothoracic Vascular Surgery); ATTEND Thoracic Surgery (Cardiothoracic Vascular Surgery)
PROC: 06BQ4ZZ Excision of Left Saphenous Vein, Percutaneous Endoscopic Approach (ICD-10-PCS; 2016-11-08)
PROC: 5A1221Z Performance of Cardiac Output, Continuous (ICD-10-PCS; 2016-11-08)
PROC: 02100Z9 Bypass Coronary Artery, One Artery from Left Internal Mammary, Open Approach (ICD-10-PCS; principal; 2016-11-08 11:35)
PROC: 021109W Bypass Coronary Artery, Two Arteries from Aorta with Autologous Venous Tissue, Open Approach (ICD-10-PCS; 2016-11-08 11:35)
DX: I25.110 Atherosclerotic heart disease of native coronary artery with unstable angina pectoris (principal); I10 Essential (primary) hypertension; I47.1 Supraventricular tachycardia; I20.8 Other forms of angina pectoris; E78.5 Hyperlipidemia, unspecified; Z87.891 Personal history of nicotine dependence
CPT/HCPCS: 36430; 71010; 76937; 80048; 82948; 83735; 85025; 85027; 86850; 86900; 86901; 86920; 87640; 87641; 93005; 93318; 94002; 94060; 94150; 94640; 94664; 94667; 94668; 94726; 94729; C9248; J0131; J0282; J0690; J1644; J1815; J1817; J1940; J2150; J2250; J2370; J2405; J2720; J2765; J2930; J3010; J3370; J3475; J3480; J7050; J7120; P9016; P9047